=== PATIENT | female | born 1955 | race Caucasian/White ===

== ENCOUNTER 2018-07-13 07:50 | Emergency (ER) | payer OTHER ==
[~2018-07-13] VITALS: Ht 165.1 cm; Wt 86.2 kg
--- NOTE | ~2018-07-13 | EKG ---
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 : 1955 Requested By: Verona Huynh Order Number: [id number] MD: Sebastien Celestin Measurements Intervals [place] Rate: 101 P: 18 ID: 146 QRS: 48 QRSD: 147 T: -23 QT: 388 QTc: 503 Interpretive Statements Sinus tachycardia Multiple ventricular premature complexes Right bundle branch block No previous ECG available for comparison Electronically Signed On 07-13-2018 10:04:52 [employer] by Sebastien Celestin [email or web address] <ELECTRONICALLY SIGNED> By: Sebastien Celestin MD 07/13/18 [id number] [id number] Sebastien Celestin MD /JUAN DANIEL
[2018-07-13 08:10] LABS: URINE BILIRUBIN NEGATIVE (Negative); URINE BLOOD 3+ (Negative); URINE CLARITY CLEAR; URINE COLOR YELLOW; URINE GLUCOSE-RANDOM* TRACE (Negative); URINE KETONES NEGATIVE (Negative); URINE LEUKOCYTES-REFLEX NEGATIVE (Negative); URINE NITRITE-REFLEX NEGATIVE (Negative); URINE PROTEIN (DIPSTICK) NEGATIVE (Negative); URINE SPECIFIC GRAVITY >= 1.030 (1.005-1.035); URINE UROBILINOGEN 0.2 E.U./dl (0.2-1.0)
[2018-07-13 08:24] LABS: ABSOLUTE NEUTROPHILS 5.1 thou/uL (1.4-8.2); BASOPHILS 0.8 % (0.0-2.0); EOSINOPHILS 0.8 % (0.0-3.0); HEMOGLOBIN 15.1 gm/dL (12.0-15.0); MCH 30.5 pg (26.0-34.0); MCHC 35.1 g/dL (28.0-37.0); MCV 86.9 fL (80.0-100.0); MONOCYTES 6.3 % (1.0-8.0); PLATELET COUNT 243 thou/uL (150-400); POLYS 70.1 % (36.0-66.0); RBC 4.95 mil/uL (4.20-5.00); RDW 12.8 % (10.5-14.5); WBC 7.3 thou/uL (4.0-11.0)
[2018-07-13 08:27] LABS: ANION GAP 13 mmol/L (7-16); BUN 20 mg/dL (7-18); CALCIUM 10.4 mg/dL (8.5-10.1); CHLORIDE 101 mmol/L (98-107); CO2 25 mmol/L (21-32); CREATININE 0.9 mg/dL (0.6-1.0); GLUCOSE 185 mg/dL (74-106); SODIUM 139 mmol/L (136-145)
[2018-07-13 08:36] LABS: CALCIUM OXALATE 0-3 Few /LPF (None Seen); CASTS None Seen /LPF (None Seen); SQUAMOUS 0-3 Few /LPF (0-3); URINE RBC >20 Many /HPF (0-2); URINE WBC-REFLEX 0-5 Rare /HPF (0-5)
[2018-07-13 08:36] LABS: TROPONIN-I <0.06 ng/mL (<0.06)
[2018-07-13 08:37] LABS: BACTERIA-REFLEX 1-9 Few /HPF (None Seen)
[2018-07-13] MEDS ORDERED: COZAAR 25 MG TA25 M1 PO (08:57)
[2018-07-13] MEDS ORDERED: METFORMIN HCL500 MG PO (08:57)
[2018-07-13] MEDS ORDERED: PIOGLITAZONE15 MG (08:58)
[2018-07-13] MEDS ORDERED: PROZAC10 MG PO (08:58)
[2018-07-13] MEDS ORDERED: LIPITOR10 MG PO (08:58)
[2018-07-13] MEDS ORDERED: NEURONTIN 300300 M1 PO (08:58)
[2018-07-13] MEDS ORDERED: ASPIR 8181 MG PO (08:58)
[2018-07-13] MEDS ORDERED: NOVOLOG FL100 UNIT/M (08:59)
[2018-07-13] MEDS ORDERED: TYLENOL EXTRA500 MG PO (08:59)
[2018-07-13] MEDS ORDERED: [UNRECOGNIZED DRUG - OTHER] PO (08:59)
[2018-07-13 10:17] LABS: URINE BILIRUBIN NEGATIVE (Negative); URINE BLOOD 2+ (Negative); URINE CLARITY CLEAR; URINE COLOR YELLOW; URINE GLUCOSE-RANDOM* NEGATIVE (Negative); URINE KETONES NEGATIVE (Negative); URINE LEUKOCYTES NEGATIVE (Negative); URINE NITRITE NEGATIVE (Negative); URINE PROTEIN (DIPSTICK) NEGATIVE (Negative); URINE SPECIFIC GRAVITY <= 1.005 (1.005-1.035); URINE UROBILINOGEN 0.2 E.U./dl (0.2-1.0)
[2018-07-13 10:38] LABS: CASTS None Seen /LPF (None Seen); CRYSTALS None Seen /LPF (None Seen); SQUAMOUS 0-3 Few /LPF (0-3); URINE RBC 0-2 Rare /HPF (0-2)
[2018-07-13 10:39] LABS: BACTERIA 1-9 Few /HPF (None Seen); URINE WBC 0-5 Rare /HPF (0-5)
[2018-07-13] MEDS ORDERED: BACTRIM DS TAB1 EACH PO (12:12)
[2018-07-13] MEDS ORDERED: TORADOL 10 MG T10 MG PO (12:13)
== END 2018-07-13 12:24 | disposition home or self-care (01) ==
LOC: ER 07:50
PROVIDERS: Student in an Organized Health Care Education/Training Program
DX: N20.0 Calculus of kidney (principal); I10 Essential (primary) hypertension; E78.5 Hyperlipidemia, unspecified; M19.90 Unspecified osteoarthritis, unspecified site; E11.9 Type 2 diabetes mellitus without complications; Z79.4 Long term (current) use of insulin; Z88.8 Allergy status to other drugs, medicaments and biological substances

== ENCOUNTER 2019-12-13 13:37 | Emergency (ER) | payer OTHER ==
[~2019-12-13] VITALS: Ht 165.1 cm; Wt 84.9 kg
[~2019-12-13 13:37] MED LIST: ASPIR 8181 MG PO; BACTRIM DS TAB1 EACH PO; COZAAR 25 MG TA25 M1 PO; LIPITOR10 MG PO; METFORMIN HCL500 MG PO; NEURONTIN 300300 M1 PO; NOVOLOG FL100 UNIT/M; PIOGLITAZONE15 MG; PROZAC10 MG PO; TORADOL 10 MG T10 MG PO; TYLENOL EXTRA500 MG PO; [UNRECOGNIZED DRUG - OTHER] PO
[2019-12-13 14:21] LABS: ABSOLUTE NEUTROPHILS 4.1 thou/uL (1.4-8.2); BASOPHILS 0.9 % (0.0-2.0); EOSINOPHILS 0.7 % (0.0-3.0); HEMATOCRIT 39.2 % (37.0-47.0); HEMOGLOBIN 13.5 gm/dL (12.0-15.0); LYMPHOCYTES 28.4 % (24.0-44.0); MCH 30.2 pg (26.0-34.0); MCHC 34.4 g/dL (28.0-37.0); MCV 87.9 fL (80.0-100.0); MONOCYTES 5.8 % (1.0-8.0); PLATELET COUNT 213 thou/uL (150-400); POLYS 64.2 % (36.0-66.0); RBC 4.46 mil/uL (4.20-5.00); RDW 12.7 % (10.5-14.5); WBC 6.5 thou/uL (4.0-11.0)
[2019-12-13 14:32] LABS: ANION GAP 12 mmol/L (7-16); BUN 24 mg/dL (7-18); CHLORIDE 100 mmol/L (98-107); CO2 23 mmol/L (21-32); CREATININE 0.8 mg/dL (0.6-1.0); GLUCOSE 165 mg/dL (74-106); POTASSIUM 3.6 mmol/L (3.5-5.1); SODIUM 135 mmol/L (136-145)
[2019-12-13 14:34] LABS: APTT 27.4 Seconds (24.5-32.8); PROTIME 10.7 Seconds (9.3-11.4)
[2019-12-13 14:42] LABS: ALBUMIN 4.5 g/dL (3.4-5.0); SGOT 23 U/L (15-37); SGPT 28 U/L (30-65); TOTAL BILIRUBIN 0.6 mg/dL (<0.1-1.0); TOTAL PROTEIN 7.9 g/dL (6.4-8.2); TROPONIN-I <0.06 ng/mL (<0.06)
--- NOTE | 2019-12-13 16:27 | EKG ---
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: : 1955 Requested By: Albert French Order Number: [id number] MD: Neftali Barcenas Measurements Intervals [place] Rate: 86 P: 31 GA: 153 QRS: 31 QRSD: 147 T: -15 QT: 389 QTc: 466 Interpretive Statements Sinus rhythm Right bundle branch block Compared to ECG 07/13/2018 08:52:06 Sinus tachycardia no longer present Ventricular premature complex(es) no longer present Electronically Signed On 12-13-2019 16:26:04 CDT by Neftali Barcenas [email or web address] <ELECTRONICALLY SIGNED> By: Neftali Barcenas MD, [facility] 12/13/19 1626 1420 1420 Neftali Barcenas MD, [facility] /EPI
[2019-12-13] MEDS ORDERED: ASPIRIN EC325 M1 PO (16:36)
[2019-12-13 17:02] VITALS: BP 151/74
== END 2019-12-13 17:03 | disposition home or self-care (01) ==
LOC: ER 13:37
PROVIDERS: Emergency Medicine
DX: G45.9 Transient cerebral ischemic attack, unspecified (principal); E11.9 Type 2 diabetes mellitus without complications; E78.5 Hyperlipidemia, unspecified; I10 Essential (primary) hypertension; K21.9 Gastro-esophageal reflux disease without esophagitis; Z79.899 Other long term (current) drug therapy; Z79.4 Long term (current) use of insulin; Z88.8 Allergy status to other drugs, medicaments and biological substances